=== PATIENT | male | born 1945 | race African-American/Black ===

== ENCOUNTER 2019-09-01 08:40 | Emergency (ER) | payer MEDICARE, MEDICAID ==
[~2019-09-01] VITALS: Ht 182.9 cm; Wt 86.0 kg
[2019-09-01] MEDS ORDERED: CLOP75TA4 PO (08:46)
[2019-09-01] MEDS ORDERED: LOPHC2 GT (08:46)
[2019-09-01] MEDS ORDERED: ASPI-1393 PO (08:47)
[2019-09-01] MEDS ORDERED: TAMS-11 PO (08:47)
[2019-09-01] MEDS ORDERED: SODIUM CHLORIDE 0.9% 1,000 ML IV ONE (09:20)
[2019-09-01 10:34] LABS: HEMATOCRIT. 45.3 % (42.0-52.0); HEMOGLOBIN. 15.4 g/dL (14.0-18.0); MEAN CORPUSCULAR HEMOGLOBIN 28.9 pg (28.0-32.0); MEAN CORPUSCULAR VOLUME 85.1 fL (80.0-94.0); MEAN PLATELET VOLUME 8.5 fl (7.4-10.4); PLATELET 129 x1000/uL (130-400); RED BLOOD CELL COUNT 5.32 mill/uL (4.7-6.1); RED CELL DISTRIBUTION WIDTH 14.9 % (11.6-14.6)
[2019-09-01 10:38] LABS: CHLORIDE 105 mEq/L (98-107)
[2019-09-01 12:04] LABS: PLATELET ESTIMATE NORMAL
[2019-09-01 13:00] VITALS: BP 134/80
== END 2019-09-01 13:20 | disposition home or self-care (01) ==
LOC: ER 08:40
DX: K59.00 Constipation, unspecified (principal); R42 Dizziness and giddiness; I25.2 Old myocardial infarction; E78.00 Pure hypercholesterolemia, unspecified; I11.9 Hypertensive heart disease without heart failure; I25.10 Atherosclerotic heart disease of native coronary artery without angina pectoris; Z79.82 Long term (current) use of aspirin; Z88.8 Allergy status to other drugs, medicaments and biological substances
CPT/HCPCS: 36415; 71045; 74176; 80053; 83880; 84484; 85025; 93005; 96360; 96361; 99284; J7030

== ENCOUNTER 2025-07-19 19:38 | Emergency (ER) | payer MEDICARE, MEDICAID ==
[~2025-07-19] VITALS: Ht 172.7 cm; Wt 89.0 kg
[~2025-07-19 19:38] MED LIST: ASPI-1497 PO; CLOP-31 PO; LOPHC2 GT; TAMS-54 PO
[2025-07-19 19:40] VITALS: O2SAT 100
[2025-07-19 19:56] VITALS: BP 141/75; PULSE 95; RESP 16; TEMP 37.2; O2SAT 100
[2025-07-19 21:44] LABS: CLARITY URINE TURBID (CLEAR); COLOR URINE YELLOW (YELLOW); GLUCOSE URINE NEGATIVE (NEGATIVE); KETONES URINE TRACE (NEGATIVE); LEUKOCYTE ESTERASE URINE 3+ (NEGATIVE); NITRITE URINE NEGATIVE (NEGATIVE); OCCULT BLOOD URINE 2+ (NEGATIVE); PH URINE 6.0 (4.5-8.0); PROTEIN URINE 1+ (NEGATIVE); SPECIFIC GRAVITY URINE 1.013 (1.005-1.030); UROBILINOGEN URINE 0.2 E.U./dL (0.2-1.0)
[2025-07-19 22:01] LABS: BACTERIA URINE 2+; SQUAMOUS EPITHELIAL CELL URINE 1+ /lpf (RARE/1+)
[2025-07-19] MEDS ORDERED: CEPH500T MT (22:28)
== END 2025-07-19 22:36 | disposition home or self-care (01) ==
LOC: ER 19:38
DX: N39.0 Urinary tract infection, site not specified (principal); E78.00 Pure hypercholesterolemia, unspecified; I10 Essential (primary) hypertension; I25.10 Atherosclerotic heart disease of native coronary artery without angina pectoris; Z79.899 Other long term (current) drug therapy
CPT/HCPCS: 81003; 99283